=== PATIENT | female | born 1955 | race Caucasian/White ===

== ENCOUNTER 2023-02-04 06:28 | Day surgery (SDC) | payer MEDICARE, BC, SELFPAY ==
[2023-02-04] VITALS (10 sets, daily range): BP systolic 140–168; BP diastolic 85–101; PULSE 57–68; RESP 16–20; TEMP 36.5–36.7; O2SAT 95–100; BMI 24.4
[2023-02-04] MEDS: lidocaine HCL 2 % MULTIDOSE 20 ML VIAL 14 ML INJECTION (07:40)
[2023-02-04] MEDS: BUPIVACAINE 0.5% 30 ML 10 ML INJECTION (07:40)
--- NOTE | 2023-02-04 08:08 | P.ORPRC_ITS ---
Procedure Note Date of procedure: 02/04/23 Procedure: Preop diagnosis: Right hand middle finger stenosing tenosynovitis, ring finger dorsal PIP joint skin lesion Postop diagnosis: Right hand middle finger stenosing tenosynovitis, ring finger dorsal PIP joint skin lesion Procedure: Right hand middle finger A1 braxton release, ring finger skin lesion excisional biopsy Anesthesia: Local Surgeon: Markus Mesa MD assistant corporate secretary: KURTIS Delgado EBL: 0 mL Complications: None Specimens: Sent for gross and microscopic pathology labeled right hand, ring finger skin lesion Drains: None Preoperative antibiotics: None Indications: The patient has a history of right upper extremity middle finger painful catching and locking. Despite appropriate non operative management including flexor tendon sheath corticosteroid injections they continue to have symptoms. Additionally, there has been a skin lesion over the dorsum of the ring finger PIP joint. This has been refractory to typical treatment. Operative intervention was recommended. The risks, benefits alternatives and expected outcomes were discussed in detail. These included but were not limited to: Infection, bleeding, injury to blood vessel or nerve, venous thromboembolism. All questions were answered to their satisfaction. The patient was placed supine on the operating room table. Local anesthesia was established with 0.5% Marcaine without epinephrine and 2% lidocaine without epinephrine at the base of the middle finger volarly and a digital block of the ring finger. The hand was prepped and draped in usual sterile fashion. The limb was elevated the forearm pneumatic tourniquet was inflated to 250 mm of mercury. A transverse incision was made centered over the base of the middle finger in the distal palmar crease. Subcutaneous dissection was taken through the palmar fascia to the flexor tendons with the tenotomy scissors. The A1 braxton was released with the 15 blade and a tenotomy scissors. Active flexion and extension of the finger shows no catching or locking, no bowstringing of the flexor tendons. Attention was then turned to the ring finger. A transverse, elliptical incision was made to excise the skin lesion. This does not to invade the deep soft tissues. Additionally, it does not emanate from the PIP joint. It was sent to pathology labeled right hand, ring finger skin lesion. The wound was closed with interrupted nylon sutures. A dry dressing was applied the tourniquet was released. Sponge and needle counts were correct x 2. The patient tolerated the procedure well, there were no apparent complications. They were sent to same day surgery in satisfactory condition. Plan: Use of the hand as tolerates. Discontinue the intraoperative dressing on postoperative day 3 and may get the wound wet as tolerates. Follow up in the office in 2 weeks for a wound check, suture removal and to check her final pathology.
== END 2023-02-04 08:38 | disposition home or self-care (01) ==
PROVIDERS: PCP Physician Assistant Medical; Visit Provider Orthopaedic Surgery
PROC: (CPT 26055; principal; 2023-02-04 07:30)
DX: M65.841 Other synovitis and tenosynovitis, right hand (principal); L98.8 Other specified disorders of the skin and subcutaneous tissue
CPT/HCPCS: 26055; 11422; 88304; J3490